=== PATIENT | male | born 1985 | race Caucasian/White ===

== ENCOUNTER 2020-02-26 18:38 | Inpatient (IN) ==
[2020-02-26] MEDS ORDERED: *HR* FentaNYL (PF) 100 MCG/2 ML VIAL IVP ONE (19:06)
[2020-02-26] MEDS ORDERED: 0.9 % Sodium Chloride 1,000 ML IVC ONE ×2 (19:06→20:56)
[2020-02-26] MEDS ORDERED: Isovue-370 500 ML BOTTLE IVP ONE (19:07)
[2020-02-26] MEDS ORDERED: Piperacillin/Tazobactam 3.375 GM in 0.9 % Sodium Chloride Mini Bag 100 ML IVPB ONE (19:08)
[2020-02-26] MEDS ORDERED: Vancomycin 2,000 MG/520 ML IV.SOLN IVPB ONE (19:15)
[2020-02-26 19:31] LABS: Basophils # 0.1 K/mcL (0.0-0.2); Basophils % 0.4 %; Eosinophils # 0.5 K/mcL (0.0-0.6); Eosinophils % 3.9 %; Hemoglobin 14.5 g/dL (12.9-16.9); Immature Granulocytes % 0.5 % (0-4); Lymphocytes # 1.7 K/mcL (0.6-4.6); Lymphocytes % 13.2 %; Mean Corpuscular HGB Conc 33.7 g/dL (31.6-35.5); Mean Corpuscular Hemoglobin 27.9 pg (28.0-33.3); Mean Corpuscular Volume 82.9 fL (83.0-100.0); Mean Platelet Volume 10.1 fL (9.4-12.4); Monocytes # 0.8 K/mcL (0.0-1.3); Monocytes % 5.7 %; Neutrophils # 10.1 K/mcL (1.6-8.9); Platelet Count 227 K/mcL (140-400); Red Blood Count 5.19 M/mcL (4.19-5.50); Red Cell Distribution Width 12.2 % (11.5-14.5); Segmented Neutrophils % 76.3 %; White Blood Count 13.2 K/mcL (4.3-11.1)
[2020-02-26 19:38] LABS: INR 1.1; Prothrombin Time 12.9 Seconds (9.4-12.1)
[2020-02-26 20:15] LABS: BUN/Creatinine Ratio 16 (6-26); Blood Urea Nitrogen 10 mg/dL (6-20); Carbon Dioxide 28 mEq/L (23-29); Chloride 97 mEq/L (98-107); Glucose 225 mg/dL (70-105); Osmolality,Calculated 284 (280-300); Sodium 134 mEq/L (136-145); eGFR For African Americans > 60 (> 60); eGFR For Non-African Americans > 60 (> 60)
[2020-02-26] MEDS ORDERED: *HR* Midazolam HCl 2 MG/2 ML VIAL ONE (21:46)
[2020-02-26] MEDS ORDERED: *HR* FentaNYL (PF) 100 MCG/2 ML VIAL ONE (21:46)
[2020-02-26] MEDS ORDERED: *HR* Propofol 200 MG/20 ML VIAL IVP ONE (21:47)
[2020-02-26] MEDS ORDERED: *HR* Rocuronium Bromide 50 MG/5 ML VIAL ONE (21:53)
[2020-02-26] MEDS ORDERED: *HR* HYDROmorphone PF 0.5 MG/0.5 ML SYRINGE IVP PRN (21:53)
[2020-02-26] MEDS ORDERED: *HR* Meperidine 25 MG/ML SYRINGE IVP PRN (21:53)
[2020-02-26] MEDS ORDERED: Ondansetron 4 MG/2 ML VIAL ONE (21:53)
[2020-02-26] MEDS ORDERED: *HR* Promethazine 25 MG/ML VIAL IVP PRN (21:53)
[2020-02-26] MEDS ORDERED: Dexamethasone 4 MG/ML VIAL ONE (21:53)
[2020-02-26] MEDS ORDERED: Lidocaine HCL 4 ML Topical Solution (Laryng-O-Jet Kit Sterile Pak) TP ONE (21:53)
[2020-02-26] MEDS ORDERED: Ondansetron 4 MG/2 ML VIAL IVP ONE (21:53)
[2020-02-26] MEDS ORDERED: *HR* Succinylcholine 200 MG/10 ML VIAL IVP ONE (21:53)
[2020-02-26] MEDS ORDERED: Lidocaine -MPF 2% 2 ML VIAL ONE (21:53)
[2020-02-27] MEDS ORDERED: D5% in Water 1,000 ML IVC PRN (00:06)
[2020-02-27] MEDS ORDERED: *HR* Dextrose 50 % in Water (Syg) 50 ML SYRINGE IVP PRN (00:06)
[2020-02-27] MEDS ORDERED: Ondansetron 4 MG/2 ML VIAL IVP PRN (00:06)
[2020-02-27] MEDS ORDERED: Dextrose Gel 15 GM/37.5 ML TUBE PO PRN ×2 (00:06)
[2020-02-27] MEDS ORDERED: 0.9 % Sodium Chloride 1,000 ML IVC SCH (00:06)
[2020-02-27] MEDS ORDERED: Piperacillin/Tazobactam 3.375 GM in 0.9 % Sodium Chloride Mini Bag 100 ML IVPB SCH (00:06)
[2020-02-27] MEDS ORDERED: *HR* OxyCODONE/APAP 5/325 TABLET PO PRN (00:06)
[2020-02-27] MEDS: Insulin LISPRO 300 UNITS/3 ML VIAL SQ SCH ×2 (00:42→06:37)
[2020-02-27] MEDS: Ketorolac 30 MG/ML VIAL IVP SCH ×2 (00:42→06:31)
[2020-02-27 04:37] LABS: Basophils % 0.3 %; Eosinophils # 0.1 K/mcL (0.0-0.6); Hematocrit 40.2 % (37.5-50.1); Hemoglobin 13.6 g/dL (12.9-16.9); Immature Granulocytes % 0.4 % (0-4); Lymphocytes # 0.9 K/mcL (0.6-4.6); Lymphocytes % 8.2 %; Mean Corpuscular HGB Conc 33.8 g/dL (31.6-35.5); Mean Corpuscular Hemoglobin 28.1 pg (28.0-33.3); Mean Corpuscular Volume 83.1 fL (83.0-100.0); Mean Platelet Volume 10.6 fL (9.4-12.4); Monocytes # 0.3 K/mcL (0.0-1.3); Monocytes % 2.8 %; Neutrophils # 9.2 K/mcL (1.6-8.9); Platelet Count 181 K/mcL (140-400); Red Blood Count 4.84 M/mcL (4.19-5.50); Red Cell Distribution Width 12.3 % (11.5-14.5); Segmented Neutrophils % 87.3 %; White Blood Count 10.5 K/mcL (4.3-11.1)
[2020-02-27 04:56] LABS: BUN/Creatinine Ratio 18 (6-26); Blood Urea Nitrogen 14 mg/dL (6-20); Calcium 8.3 mg/dL (8.6-10.3); Carbon Dioxide 25 mEq/L (23-29); Chloride 100 mEq/L (98-107); Glucose 421 mg/dL (70-105); Osmolality,Calculated 290 (280-300); Potassium 4.4 mEq/L (3.5-5.1); Sodium 131 mEq/L (136-145); eGFR For African Americans > 60 (> 60); eGFR For Non-African Americans > 60 (> 60)
[2020-02-27] MEDS ORDERED: *HR* Heparin 5,000 UNIT/ML VIAL SQ SCH (06:00)
[2020-02-27 06:59] VITALS: BP 96/60
== END 2020-02-27 10:26 | disposition home or self-care (01) | DRG 364 ==
LOC: EMEROOARM 18:38 → 3BNU 22:19
PROVIDERS: ADMIT Surgery; ATTEND Surgery